=== PATIENT | female | born 1960 ===

== ENCOUNTER 2017-02-16 14:51 | Observation (INO) | payer OTHER, SELFPAY ==
--- NOTE | 2017-02-16 15:36 | ED PDOC ---
HPI: Abdomen Time Seen by Provider: 02/16/17 15:04 Chief Complaint (Nursing): Abdominal Pain Chief Complaint (Provider): Abdominal Pain History Per: Patient History/Exam Limitations: no limitations Onset/Duration Of Symptoms: Days (x 1 week) Current Symptoms Are (Timing): Still Present Associated Symptoms: denies: Nausea, Vomiting, Diarrhea Additional Complaint(s): Jl Power is a 56 y/o female with a past medical history of diabetes and hypertension, who presents to the ED complaining of lower abdominal pain, occurring intermittently for 1 week. Denies fever, nausea, vomiting, diarrhea, and constipation. Patient states surgical history includes and abdominoplasty. PMD: Dr. Casillas Past Medical History Reviewed: Historical Data, Nursing Documentation, Vital Signs Vital Signs: Last Vital Signs Temp 97.9 F 02/16/17 20:53 Pulse 68 02/16/17 20:53 Resp 17 02/16/17 20:53 BP 115/82 02/16/17 20:53 Pulse Ox 98 02/16/17 20:55 - Medical History PMH: Diabetes, HTN - Surgical History Surgical History: Other surgeries: Abdominoplasty - Family History Family History: States: Unknown Family Hx - Allergies Allergies/Adverse Reactions: Allergies Allergy/AdvReac Type Severity Reaction Status Date / Time No Known Allergies Allergy Verified 02/16/17 14:59 Review of Systems ROS Statement: Except As Marked, All Systems Reviewed And Found Negative Constitutional: Negative for: Fever Gastrointestinal: Positive for: Abdominal Pain. Negative for: Nausea, Vomiting , Diarrhea, Constipation Physical Exam - Reviewed Nursing Documentation Reviewed: Yes Vital Signs Reviewed: Yes - Physical Exam Appears: Positive for: Non-toxic, No Acute Distress Head Exam: Positive for: ATRAUMATIC, NORMAL INSPECTION, NORMOCEPHALIC Skin: Positive for: Normal Color, Warm, Dry Eye Exam: Positive for: EOMI, Normal appearance, PERRL Neck: Positive for: Normal, Painless ROM, Supple Cardiovascular/Chest: Positive for: Regular Rate, Rhythm. Negative for: Murmur Respiratory: Positive for: Normal Breath Sounds. Negative for: Accessory Muscle Use, Respiratory Distress Gastrointestinal/Abdominal: Positive for: Soft, Tenderness (Right lower quadrant tenderness). Negative for: Guarding, Rebound Back: Positive for: Normal Inspection. Negative for: Vertebral Tenderness Extremity: Positive for: Normal ROM. Negative for: Pedal Edema, Deformity Neurologic/Psych: Positive for: Alert, Oriented - Laboratory Results Result Diagrams: 02/16/17 15:40 02/16/17 15:40 - ECG O2 Sat by Pulse Oximetry: 98 (RA) Pulse Ox Interpretation: Normal Medical Decision Making Medical Decision Making: Time: 15:24 Initial Impression: Ovarian cyst, appendicitis, UTI Initial Plan: --CMP --CBC --PTT --Prothrombin time --Accucheck --Urinalysis --Urine dipstick --EKG --CT Abdomen/pelvis IV contrast Scribe Attestation: Documented by Renuka Griffiths, acting as a scribe for Laila Buckner MD Provider Scribe Attestation: All medical record entries made by the Scribe were at my direction and personally dictated by me. I have reviewed the chart and agree that the record accurately reflects my personal performance of the history, physical exam, medical decision making, and the department course for this patient. I have also personally directed, reviewed, and agree with the discharge instructions and disposition. ED OBSERVATION Date of observation admission: 02/16/17 Time of observation admission: 17:00 - Observation admission statement Patient is being placed in observation because:: Pending CT scan and Ultrasound. - Progress Note Progress Note: 02/16/17 18:50 Comfortable, currently drinking for US Disposition - Clinical Impression Clinical Impression: Ovarian cyst - Disposition Disposition: Transfer of Care Disposition Time: 17:00 Condition: STABLE Patient Signed Over To: Isaac Mena Handoff Comments: Pending ultrasound.
[2017-02-16 15:46] LABS: BASO % 0.5 % (0.0-2.0); EOS % 0.7 % (0.0-4.0); HEMOGLOBIN 11.7 g/dL (12.0-16.0); LYMPH # 3.2 K/uL (1.0-4.3); LYMPH % 47.5 % (20.0-40.0); MEAN CORPUSCULAR HEMOGLOBIN 30.3 pg (27.0-31.0); MEAN PLATELET VOLUME 7.7 fl (7.2-11.7); MONO # 0.6 K/uL (0.0-0.8); MONO % 9.7 % (0.0-10.0); NEUT # 2.8 K/uL (1.8-7.0); NEUT % 41.6 % (50.0-75.0); NRBC % 0.2 % (0.0-0.0); RBC 3.85 Mil/uL (3.80-5.20); RED CELL DISTRIBUTION WIDTH 13.9 % (11.5-14.5); WHITE BLOOD COUNT 6.7 K/uL (4.8-10.8)
[2017-02-16 15:47] LABS: SQUAMOUS EPITHIAL 1 /hpf (0-5); URINE BACTERIA RARE (<OCC); URINE BILIRUBIN NEGATIVE (NEGATIVE); URINE BLOOD NEGATIVE (NEGATIVE); URINE CLARITY SLIGHTY-CLOUDY (Clear); URINE COLOR YELLOW (YELLOW); URINE GLUCOSE (UA) NEG (Normal); URINE LEUKOCYTE ESTERASE NEG Leu/uL (Negative); URINE NITRATE NEGATIVE (NEGATIVE); URINE PROTEIN NEGATIVE (NEGATIVE); URINE UROBILINOGEN 0.2-1.0 mg/dL (0.2-1.0)
[2017-02-16 15:56] LABS: ALB/GLOB RATIO 1.3 (1.0-2.1); ALBUMIN 4.1 g/dL (3.5-5.0); ALT/SGPT 26 U/L (9-52); AST/SGOT 21 U/L (14-36); BLOOD UREA NITROGEN 11 mg/dl (7-17); CALCIUM 9.6 mg/dL (8.4-10.2); GFR AFRICAN-AMERICAN > 60; GFR NON-AFRICAN AMERICAN > 60
[2017-02-16 16:05] LABS: INR 1.1 (0.9-1.2); PARTIAL THROMBOPLASTIN TIME 29.8 Seconds (25.6-37.1); PROTHROMBIN TIME 10.8 Seconds (9.8-13.1)
[2017-02-16] MEDS ORDERED: Iohexol 300 100 ML IJ ONE (16:47)
[2017-02-16] MEDS ORDERED: Sodium Chloride 0.9% 50 ML IV ONE (16:47)
--- NOTE | 2017-02-16 17:16 | CT ---
PROCEDURE: CT Abdomen and Pelvis with contrast HISTORY: RLQ pain COMPARISON: None. TECHNIQUE: Contrast dose: Omnipaque 300, 90 cc Radiation dose: Total exam DLP = 488 mGy-cm. This CT exam was performed using one or more of the following dose reduction techniques: Automated exposure control, adjustment of the mA and/or kV according to patient size, and/or use of iterative reconstruction technique. FINDINGS: LOWER THORAX: Unremarkable. LIVER: Liver is diminished in attenuation indicating diffuse fat infiltration. No discrete mass or cysts identified throughout the liver parenchyma otherwise. No definite intrahepatic biliary dilatation. GALLBLADDER AND BILE DUCTS: Mildly distended and otherwise unremarkable appearing. PANCREAS: Unremarkable. No gross lesion or ductal dilatation. SPLEEN: A tiny granuloma is identified at the lateral portion of the spleen with remainder unremarkable ADRENALS: Unremarkable. No mass. KIDNEYS AND URETERS: Unremarkable. No hydronephrosis. No solid mass. VASCULATURE: Unremarkable. No aortic aneurysm. BOWEL: There is no bowel obstruction identified. The lack of oral contrast administration limits interpretation of the bowel as well as moderate fecal loading throughout the proximal half of the colon. The appendix is normal appearing. APPENDIX: Normal appendix. PERITONEUM: Unremarkable. No free fluid. No free air. LYMPH NODES: Unremarkable. No enlarged lymph nodes. BLADDER: Unremarkable. REPRODUCTIVE: Limited inhomogeneous enhancement of the uterus may indicate limited fibroids though none is specifically identified. BONES: Mild multilevel lumbar spondylosis. OTHER FINDINGS: Prior ventral abdominal hernia repair identified. IMPRESSION: No definite acute abdominal finding including the appendix which is normal. The lack of oral contrast limits evaluation the bowel however there is no bowel obstruction appreciated. Postop changes in the intra-abdominal wall status post ventral hernia repair.
--- NOTE | 2017-02-16 19:17 | ED PDOC ---
"- Laboratory Results Result Diagrams: 02/16/17 15:40 02/16/17 15:40 - ECG O2 Sat by Pulse Oximetry: 98 (RA) Pulse Ox Interpretation: Normal Medical Decision Making Medical Decision Making: Patient signed out to provider at [address] Buckner pending US abdomen. COMPARISON: No relevant prior studies available. FINDINGS: Uterus: Measures 9.5 x 2.4 x 4.5 cm. Endometrial stripe does not appear abnormally thickened, measuring 2.8 mm in AP dimensions. Right ovary: Within normal limits in appearance. Measures 2.2 x 1.8 x 2.1 cm. Flow seen in the right ovary on color and Doppler imaging, with no evidence of torsion. Left ovary: Measures 3.8 x 1.8 x 3.3 cm. Contains a small 1.7 x 1.6 cm simple cystic lesion. This cyst is almost certainly benign. Yearly pelvic ultrasound follow-up is recommended, in a postmenopausal patient. Flow seen in the left ovary on color and Doppler imaging , with no evidence of torsion. Cul-de-sac: No free fluid. IMPRESSION: No evidence of ovarian torsion or other significant acute abnormality. Small 1.7 cm simple cystic lesion in the left ovary. See above. See above for remaining findings. SWETHA JAMISONLIANA | Final Radiology Report CONFIDENTIALITY STATEMENT This report is intended only for use by the referring physician, and only in accordance with law. If you received this in error, call [phone]. Page 2 of 2 Thank you for allowing us to participate in the care of your patient. Dictated and Authenticated by: Alma Bhat MD 02/16/2017 8:25 PM Eastern Time ([place] & [place]) Scribe Attestation Documented by Kenyatta Dickerson acting as a scribe for Isaac Mena MD. Provider Attestation: All medical record entries made by the Scribe were at my direction and personally dictated by me. I have reviewed the chart and agree that the record accurately reflects my personal performance of the history, physical exam, medical decision making, and the department course for this patient. I have also personally directed, reviewed, and agree with the discharge instructions and disposition. Disposition Doctor Will See Patient In The: Office Counseled Patient/Family Regarding: Studies Performed, Diagnosis, Need For Followup - Clinical Impression Clinical Impression: Ovarian cyst - POA Present On Arrival: None - Disposition Disposition: Routine/Home Disposition Time: 20:42 Condition: GOOD ED OBSERVATION Date of observation admission: 02/16/17 Time of observation admission: 17:00 - Goals of Observation Goals of observation are:: Pending US abdomen."
--- NOTE | 2017-02-16 20:26 | US ---
EXAM: US Pelvis Complete, Transabdominal CLINICAL HISTORY: 56 years old, female; Pain; Pelvic pain; Additional info: Rlq pain TECHNIQUE: Real-time transabdominal pelvic ultrasound (complete) with image documentation. EXAM DATE/TIME: 02/16/2017 5:34 PM COMPARISON: No relevant prior studies available. FINDINGS: Uterus: Measures 9.5 x 2.4 x 4.5 cm. Endometrial stripe does not appear abnormally thickened, measuring 2.8 mm in AP dimensions. Right ovary: Within normal limits in appearance. Measures 2.2 x 1.8 x 2.1 cm. Flow seen in the right ovary on color and Doppler imaging, with no evidence of torsion. Left ovary: Measures 3.8 x 1.8 x 3.3 cm. Contains a small 1.7 x 1.6 cm simple cystic lesion. This cyst is almost certainly benign. Yearly pelvic ultrasound follow-up is recommended, in a postmenopausal patient. Flow seen in the left ovary on color and Doppler imaging, with no evidence of torsion. Cul-de-sac: No free fluid. IMPRESSION: No evidence of ovarian torsion or other significant acute abnormality. Small 1.7 cm simple cystic lesion in the left ovary. See above. See above for remaining findings.
[2017-02-16 20:54] VITALS: BP 115/82; PULSE 68; RESP 17; TEMP 97.9
[2017-02-16 20:55] VITALS: O2SAT 98
--- NOTE | 2017-02-17 10:44 | CARD ---
APPROVED REPORT EKG Measurement Heart [id number] <Conclusion> Normal sinus rhythm Possible Left atrial enlargement Left ventricular hypertrophy Abnormal ECG
== END 2017-02-16 20:51 | disposition home or self-care (01) ==
LOC: H.ER 14:51 → H.EROBSV 17:00
PROVIDERS: ADMIT Emergency Medicine; ATTEND Emergency Medicine
DX: N83.209 Unspecified ovarian cyst, unspecified side (principal); E11.9 Type 2 diabetes mellitus without complications; I10 Essential (primary) hypertension